=== PATIENT | male | born 1990 | race Caucasian/White ===

== ENCOUNTER 2022-07-28 13:51 | Emergency (ER) | payer MEDICARE, OTHER ==
[~2022-07-28] VITALS: Ht 172.7 cm; Wt 129.3 kg
[2022-07-28] MEDS ORDERED: CLOZAPINE200 MG PO (15:53)
[2022-07-28] MEDS ORDERED: DOCUSATE SODIU100 MG PO (15:54)
[2022-07-28] MEDS ORDERED: MIRTAZAPINE15 MG PO (15:55)
[2022-07-28] MEDS ORDERED: DIVALPROEX SOD500 MG PO (15:56)
[2022-07-28] MEDS ORDERED: BENZTROPINE MESY2 MG PO (15:56)
[2022-07-28] MEDS ORDERED: OLANZAPINE5 MG PO (15:57)
[2022-07-28] MEDS ORDERED: VENLAFAXINE HC150 MG PO (15:57)
[2022-07-28] MEDS ORDERED: CLOZAPINE50 MG PO (15:57)
== END 2022-07-31 11:03 | disposition short-term general hospital (02) ==
LOC: ED 13:51
DX: F29 Unspecified psychosis not due to a substance or known physiological condition (principal); F31.9 Bipolar disorder, unspecified; Z20.822 Contact with and (suspected) exposure to COVID-19; Z79.899 Other long term (current) drug therapy
CPT/HCPCS: 36415; 80053; 81003; 84443; 85025; 87502; 99285; A9270; A9270-GY; G0480; U0003